=== PATIENT | male | born 1960 | race Caucasian/White ===

== ENCOUNTER → 2022-10-14 08:39 | Outpatient (BNVA) | payer OTHER, SELFPAY | PROVIDERS: Family Provider Family Medicine; Visit Provider Nurse Practitioner Family | DX: Z00.00 Encounter for general adult medical examination without abnormal findings (principal); N39.0 Urinary tract infection, site not specified | CPT/HCPCS: 80061; 81000; 85025; G0103 ==

== ENCOUNTER → 2022-11-04 11:10 | Outpatient (BNVA) | payer OTHER, SELFPAY | PROVIDERS: Family Provider Family Medicine; Visit Provider Nurse Practitioner Family | DX: Z12.5 Encounter for screening for malignant neoplasm of prostate (principal) | CPT/HCPCS: 84153 ==

== ENCOUNTER 2023-01-26 06:21 | Day surgery (SDC) | payer OTHER, SELFPAY ==
[2023-01-24 13:04] VITALS: BMI 27.3
[2023-01-26 06:44] VITALS: BP 115/71; PULSE 65; RESP 18; TEMP 36.7; O2SAT 97
[2023-01-26] MEDS: sodium chloride 0.9% 1,000 ML 30 ML IV (06:48)
--- NOTE | 2023-01-26 07:08 | ANES.PREANE2 ---
Pre-Anesthetic Assessment Height/Weight: Height 1.7 m Weight 79.379 kg Temp Pulse Resp BP Pulse Ox O2 Del Method 98.0 F 65 18 115/71 97 Room Air 01/26/23 06:44 01/26/23 06:44 01/26/23 06:44 01/26/23 06:44 01/26/23 06:44 01/26/23 06:44 Preop Diagnosis: screening Operation Date: 01/26/23 07:30 Proposed Procedures p [id number] Colon(Not Applicable) - Abdelrahman Black, DO Was Beta Andres taken within 24 hours: N/A Was Clonidine taken within 24 hours: N/A Last intake: Intake Last Liquid Date 01/24/23 Last Liquid Time 18:00 Last Solid Date 01/25/23 Last Solid Time 22:00 Social No alcohol and No tobacco Exam alert, oriented x 3, clear to auscultation bilaterally and regular rate & rhythm History/ROS No significant history except as noted and No significant complaints Pulmonary None reported CV/HEM None reported None reported Hepatic None reported GI None reported Metabolic None reported Musc/skel None reported Neuropsych None reported Anesthetic Plan ASA status: 1 Anesthesia: MAC Risk of > 500 ml blood loss (7ml/kg in children): No Medications/Allergies Home Medications Medication Instructions Recorded Confirmed Last Taken Type clobetasol 0.05 % scalp solution 1 applic topical DAILY #50 mL 12/28/21 01/24/23 01/24/23 Rx ascorbic acid (vitamin C) 1,500 mg PO DAILY 10/14/22 01/24/23 01/25/23 History glucosamine HCl 1,500 mg tablet 1,500 mg PO DAILY 10/14/22 01/24/23 01/24/23 History multivitamin 1 tab PO DAILY 10/14/22 01/24/23 01/24/23 History tadalafil 5 mg tablet 5 mg PO DAILY 10/14/22 01/24/23 01/24/23 History Allergies Allergy/AdvReac Type Severity Reaction Status Date / Time No Known Allergies Allergy Verified 01/26/23 06:37 Current Medications Generic Name Dose Route Start Last Admin Trade Name Freq PRN Reason Stop Dose Admin Sodium Chloride 1,000 mls @ 30 mls/hr 01/26/23 06:45 01/26/23 06:48 Sodium Chloride 0.9% IV 30 mls/hr .Q24H BACILIO Administration PFSH Anesthesia Medical History No pertinent past medical history Surgical History No pertinent past surgical history Family History Father Cancer Stroke Hyperlipidemia Denies family history of Diabetes CAD (coronary artery disease) Lung disease Hypertension Social History Smoking and tobacco status: never smoked Quit status (tobacco): has tried quititng Alcohol intake: current Alcohol intake frequency: holidays/special occasions only Substance/Drug Use: never Adopted: No Caregiver/support person: No Lives independently: No Household members: spouse Housing: House Marital status: service: No Current occupational status: employed Sexually active: Yes Do you think of yourself as: Straight/Heterosexual Current gender identity: Male Data Anesthesia Cardiac Studies: No Data to Display
--- NOTE | 2023-01-26 07:39 | PM.HP ---
Providers/Chief Complaint Chief Complaint: Z12.11 History of Present Illness Sony Mcintosh is a 62 year old male Medications/Allergies Home Medications Medication Instructions Recorded Confirmed Last Taken Type clobetasol 0.05 % scalp solution 1 applic topical DAILY #50 mL 12/28/21 01/24/23 01/24/23 Rx ascorbic acid (vitamin C) 1,500 mg PO DAILY 10/14/22 01/24/23 01/25/23 History glucosamine HCl 1,500 mg tablet 1,500 mg PO DAILY 10/14/22 01/24/23 01/24/23 History multivitamin 1 tab PO DAILY 10/14/22 01/24/23 01/24/23 History tadalafil 5 mg tablet 5 mg PO DAILY 10/14/22 01/24/23 01/24/23 History Allergies Allergy/AdvReac Type Severity Reaction Status Date / Time No Known Allergies Allergy Verified 01/26/23 06:37 PFSH Acute PFSH: Medical History No pertinent past medical history Surgical History No pertinent past surgical history Family History Father Cancer Stroke Hyperlipidemia Denies family history of Diabetes CAD (coronary artery disease) Lung disease Hypertension Social History Smoking and tobacco status: never smoked Quit status (tobacco): has tried quititng Alcohol intake: current Alcohol intake frequency: holidays/special occasions only Substance/Drug Use: never Adopted: No Caregiver/support person: No Lives independently: No Household members: spouse Housing: House Marital status: service: No Current occupational status: employed Sexually active: Yes Do you think of yourself as: Straight/Heterosexual Current gender identity: Male Vitals/I&O/Wt Last Vital Signs Temp 98.0 F 01/26/23 06:44 Pulse 65 01/26/23 06:44 Resp 18 01/26/23 06:44 BP 115/71 01/26/23 06:44 Pulse Ox 97 01/26/23 06:44 O2 Del Method Room Air 01/26/23 06:44 Weight last 48 hrs Weight 175 lb A&P Assessment and plan (1) Screening for colon cancer: Plan Colonoscopy Attestations Medical Necessity Statement*: Home Coding Level of Care Code Acute Code for Chg Fwd Diagnoses Screening for colon cancer Z12.11
[2023-01-26 08:15] VITALS: BP 97/85; PULSE 63; RESP 20; TEMP 36.1; O2SAT 97
[2023-01-26 08:20] VITALS: BP 100/56; PULSE 77; RESP 18; O2SAT 98
[2023-01-26 08:40] VITALS: BP 120/76; PULSE 74; RESP 18; O2SAT 98
--- NOTE | 2023-01-26 14:55 | ANE.PACU2 ---
Inpatient post-anesthesia follow up: Airway intact: Yes Vital signs: Temperature 97 F Pulse Rate 74 Respiratory Rate 18 Blood Pressure 120/76 Pulse Oximetry 98 Oxygen Delivery Me thod Room Air Oxygen Flow Rate Fraction of Inspir ed Oxygen Hydration adequate: Yes Nausea and vomiting: No Pain level: 2 Mental status: Baseline
== END 2023-01-26 09:05 | disposition home or self-care (01) ==
PROVIDERS: Visit Provider Surgery
PROC: 0DJD8ZZ Inspection of Lower Intestinal Tract, Via Natural or Artificial Opening Endoscopic (ICD-10-PCS; CPT 45378; principal; 2023-01-26 07:30)
DX: Z12.11 Encounter for screening for malignant neoplasm of colon (principal); D12.3 Benign neoplasm of transverse colon; D12.5 Benign neoplasm of sigmoid colon
CPT/HCPCS: 45385; 88305; J2704; J7030

== ENCOUNTER 2025-04-03 12:43 | Outpatient (CLI) | payer OTHER, SELFPAY ==
--- NOTE | 2025-04-03 13:00 | MR_ITS ---
WS: [id number] MRI LUMBAR SPINE NONCONTRAST HISTORY: M54.50 - Low back pain, unspecified COMPARISON: None available. TECHNIQUE: Sagittal and axial multisequence imaging is submitted. Degenerative disc and osteophyte disease in the cervical spine. Mild narrowing of the cervical canal at C4-5. Mild LEFT curvature lumbar spine. Curvature lumbar spine. L3 anterolisthesis by 2 mm. Conus terminates normally at L1-2 disc level. L1-L2: Mild disc bulging and facet arthritis. L2-L3: Mild annular disc bulging with osteophytic ridging, ligamentum flavum and facet arthritis. Shallow central disc protrusion. There is mild disc contact on the traversing L3 nerve roots in the subarticular recesses. Mild bilateral subarticular recess and foraminal stenosis. L3-L4: Diffuse annular disc bulging with a small central disc protrusion. Severe ligamentum flavum hypertrophy with facet joint arthritis. Fluid in the facet joints. Trefoil appearance of the thecal sac. There is disc contacting the L3 and L4 nerve roots bilaterally. Moderate to severe central, bilateral subarticular recess and moderate foraminal stenosis. L4-L5: Diffuse marked annular disc bulging with a central disc protrusion. Disc protrusion contacts the traversing L5 nerve roots. Marked ligamentum flavum and facet arthritis. Disc and osteophyte contact on the L4 and L5 nerve roots, bilateral. Moderate to severe central, bilateral subarticular recess and moderate foraminal stenosis. L5-S1: Diffuse disc bulging with a small central disc protrusion. There is mild disc contact on the S1 nerve roots. Facet joint arthritis. Near complete effacement of fat in the foramina. Moderate to severe bilateral foraminal stenosis. MR/MR lumbar spine wo con* [id number] IMPRESSION: 1. Multilevel central, subarticular recess and foraminal stenosis due to [place] of disc disease with protrusions, osteophytosis and facet joint arthropa thy. 2. Moderate to severe bilateral foraminal stenosis at L5-S1. Mild disc contact on the S1 nerve roots. 3. Moderate to severe central, bilateral subarticular recess and moderate fora katrina stenosis at L4-5. 4. Moderate to severe central, bilateral subarticular recess and moderate fora katrina stenosis at L3-4. Contact on both the L3 and L4 nerve roots. 5. Mild bilateral subarticular recess and foraminal stenosis at L2-3. There is disc contacting the traversing L3 nerve roots in the subarticular recesses. 6. Slight anterolisthesis of L3.
== END 2025-04-03 12:44 | disposition home or self-care (01) ==
PROVIDERS: PCP Registered Nurse; Visit Provider Registered Nurse
DX: M51.362 Other intervertebral disc degeneration, lumbar region with discogenic back pain and lower extremity pain (principal); M48.061 Spinal stenosis, lumbar region without neurogenic claudication; M47.816 Spondylosis without myelopathy or radiculopathy, lumbar region; M25.78 Osteophyte, vertebrae
CPT/HCPCS: 72148